=== PATIENT | female | born 1995 | race Caucasian/White ===

== ENCOUNTER → 2018-08-27 12:17 | Outpatient (CLI) | payer OTHER, SELFPAY ==
[2018-08-27 12:49] LABS: Absolute Lymphocyte Count 2.12 X10^3/ul (0.83-4.51); Absolute Neutrophil Count 4.8 X10^3/uL (2.0-7.7); Basophil# 0.02 X10^3/uL; Basophil% 0.3 % (0-1); Eosinophil# 0.03 X10^3/uL; Eosinophils% 0.4 % (0-5); Hematocrit 38.9 % (37-47); Hemoglobin 13.1 g/dl (12.0-15.0); Lymphocyte # 2.12 X10^3/ul (4.0); Lymphocyte % 27.6 % (19-41); Mean Corp Hgb Conc 33.7 g/gl (32-36); Mean Platelet Vol. 9.6 fl (6.2-12.0); Monocyte% 9.1 % (0-10); Neutrophil # 4.79 X10^3/uL (2.7-7.7); Neutrophil % 62.5 % (47-70); Platelet Count 179 K/mm3 (150-450); RBC Distribution Width CV 13.4 % (11.6-14.6); RBC Distribution Width SD 38.7 fl (35.1-43.9); Red Blood Count 4.86 M/mm3 (4.2-5.4); White Blood Count 7.7 K/mm3 (4.4-11.0)
[2018-08-27 12:50] LABS: Differential Indicated SCAN CRITERIA MET; POSITIVE COUNT NO; POSITIVE DIFFERENTIAL NO; POSITIVE MORPHOLOGY YES
[2018-08-27 14:05] LABS: HIV - WCH Non-Reactive (Nonreactive); Rubella IgG 90.2 IU/mL
[2018-08-27 14:25] LABS: Chlamydia Trachomatis by PCR Negative (Negative); Neisserai gonorrhoeae by PCR Negative (Negative); Probe Check PASS; Sample Adequacy Control PASS; Specimen Processing Control PASS
[2018-08-28 07:46] LABS: HEPATITIS B SURFACE AG Negative (Negative)
[2018-08-28 07:47] LABS: CMV Acute Antibody IgM < 30.0 AU/mL (0.0-29.9); CMV Antibody IgG < 0.60 U/mL (0.00-0.59)
[2018-09-03 02:59] LABS: Rapid Plasmin Reagin (RPR) NONREACTIVE (NONREACTIVE)
== END ==
PROVIDERS: Family Provider Family Medicine; PCP Family Medicine; Referring Provider Obstetrics & Gynecology; Visit Provider Obstetrics & Gynecology
DX: Z34.82 Encounter for supervision of other normal pregnancy, second trimester (principal)
CPT/HCPCS: 36415; 85025; 86592; 86644; 86645; 86703; 86762; 86850; 86900; 87077; 87086; 87088; 87106; 87340; 87491; 87591

== ENCOUNTER → 2018-12-07 16:02 | Outpatient (CLI) | payer OTHER, SELFPAY ==
[2018-11-26 13:24] VITALS: BMI 17.4
--- NOTE | 2018-12-07 16:21 | VDLE_ITS ---
Reason For Study: calf pain Procedure LEFT Exam performed in department. GSV is normal. The exam was diagnostic. CFV is compressible, spontaneous, phasic, A preliminary report was called and/or faxed competent, and demonstrates normal to Dr. Moore. augmentation. FV is compressible, spontaneous, phasic, competent and demonstrates normal augmentation. POP V is compressible, spontaneous, phasic, competent and demonstrates normal augmentation. T/P Trunk is compressible. PTV is compressible. LT PerV is compressible. Interpretation Summary Deep veins of the left lower extremity are patent and compressible segmentally. There is no evidence of left lower extremity deep vein thrombosis. Valvular competence appears intact within the proximal deep venous system on the left . The left greater saphenous vein appears patent and compressible segmentally. Ordering Physician: Linda Moore Performed By: Foster Suarez RVT
== END ==
PROVIDERS: Family Provider Family Medicine; PCP Family Medicine; Referring Provider Obstetrics & Gynecology; Visit Provider Obstetrics & Gynecology
DX: M79.669 Pain in unspecified lower leg (principal)
CPT/HCPCS: 93971

== ENCOUNTER → 2018-12-24 09:40 | Outpatient (CLI) | payer OTHER, SELFPAY ==
[2018-12-24 09:34] VITALS: BMI 17.4
[2018-12-24 10:34] LABS: Absolute Lymphocyte Count 1.46 X10^3/ul (0.83-4.51); Absolute Neutrophil Count 6.5 X10^3/uL (2.0-7.7); Basophil# 0.02 X10^3/uL; Basophil% 0.2 % (0-1); Eosinophil# 0.07 X10^3/uL; Eosinophils% 0.8 % (0-5); Hematocrit 26.9 % (37-47); Hemoglobin 8.4 g/dl (12.0-15.0); Lymphocyte # 1.46 X10^3/ul (4.0); Lymphocyte % 16.4 % (19-41); Mean Corp Hgb Conc 31.2 g/gl (32-36); Mean Corpuscular Volume 76.9 fL (81-99); Mean Platelet Vol. 10.1 fl (6.2-12.0); Monocyte# 0.82 X10^3/uL; Monocyte% 9.2 % (0-10); Neutrophil # 6.47 X10^3/uL (2.7-7.7); Neutrophil % 72.5 % (47-70); Platelet Count 173 K/mm3 (150-450); RBC Distribution Width CV 14.2 % (11.6-14.6); RBC Distribution Width SD 40.6 fl (35.1-43.9); White Blood Count 8.9 K/mm3 (4.4-11.0)
[2018-12-24 10:38] LABS: POSITIVE COUNT NO; POSITIVE DIFFERENTIAL NO; POSITIVE MORPHOLOGY NO
[2018-12-24 10:54] LABS: Glucose Challenge Gest 1H 50g 91 mg/dL (70-140)
== END ==
PROVIDERS: Family Provider Family Medicine; PCP Family Medicine; Referring Provider Obstetrics & Gynecology; Visit Provider Obstetrics & Gynecology
DX: Z34.90 Encounter for supervision of normal pregnancy, unspecified, unspecified trimester (principal)
CPT/HCPCS: 36415; 82950; 85025

== ENCOUNTER → 2019-01-28 10:23 | Outpatient (CLI) | payer OTHER, SELFPAY ==
[2019-01-28 09:36] VITALS: BMI 17.4
[2019-01-28 11:01] LABS: Absolute Lymphocyte Count 1.88 X10^3/ul (0.83-4.51); Basophil# 0.02 X10^3/uL; Basophil% 0.2 % (0-1); Eosinophil# 0.06 X10^3/uL; Eosinophils% 0.7 % (0-5); Hemoglobin 9.1 g/dl (12.0-15.0); Lymphocyte # 1.88 X10^3/ul (4.0); Lymphocyte % 20.7 % (19-41); Mean Corp Hgb Conc 30.3 g/gl (32-36); Mean Corpuscular Hgb 23.3 pg (27.0-32.0); Mean Corpuscular Volume 76.7 fL (81-99); Mean Platelet Vol. 9.9 fl (6.2-12.0); Monocyte# 1.09 X10^3/uL; Neutrophil # 5.95 X10^3/uL (2.7-7.7); Neutrophil % 65.4 % (47-70); Platelet Count 149 K/mm3 (150-450); Red Blood Count 3.91 M/mm3 (4.2-5.4); White Blood Count 9.1 K/mm3 (4.4-11.0)
[2019-01-28 11:04] LABS: POSITIVE COUNT NO; POSITIVE DIFFERENTIAL NO; POSITIVE MORPHOLOGY NO
== END ==
PROVIDERS: Family Provider Family Medicine; PCP Family Medicine; Referring Provider Obstetrics & Gynecology; Visit Provider Obstetrics & Gynecology
DX: O99.013 Anemia complicating pregnancy, third trimester (principal); Z3A.00 Weeks of gestation of pregnancy not specified
CPT/HCPCS: 36415; 85025

== ENCOUNTER → 2019-02-17 12:13 | Outpatient (CLI) | payer OTHER, SELFPAY ==
[2019-02-11 13:28] VITALS: BMI 17.4
--- NOTE | 2019-02-17 12:15 | US_ITS ---
STUDY: SECOND AND THIRD TRIMESTER OBSTETRICAL ULTRASOUND - LIMITED REASON FOR EXAM: Female, 23 years old. Small for dates LMP: Unknown. PRIOR ULTRASOUND: 12/16/2018 TECHNIQUE: Transabdominal TECHNICAL QUALITY: Adequate. FINDINGS: There is a single intrauterine fetus. The fetus is in a cephalic presentation. There is demonstrated cardiac activity with a heart rate of 161 bpm. There is a normal amniotic fluid volume. The largest amniotic fluid pocket measures 4.8 cm. The amniotic fluid index (JESUS) is 12.8 cm. The placenta is anterior in location and is not low lying. There are Grade 1 placental changes. The cervix was not measured. BIOMETRY: BPD: 9.24 cm: 37 weeks, 4 days HC: 33.59 cm: 38 weeks, 4 days AC: 32.58 cm: 36 weeks, 4 days FL: 6.93 cm: 35 weeks, 4 days age by current US: 37 weeks, 4 days. WANDA by current US: 03/09/2019. Estimated weight: 2978 grams, +/- 435 grams, 90 percentile. Gender: Indeterminant US/OB Limited With Biometrics IMPRESSION: Single live intrauterine at 37 weeks, 1 day by current ultrasound with WANDA of 03/09/2019. Heart rate at 161 bpm. No suspicious sonographic findings. WANDA on today's examination measures 1 week earlier than on the previous study Electronically Signed: Jacek Lopez MD at 18:36 EDT , Service support ,
== END ==
PROVIDERS: Family Provider Family Medicine; PCP Family Medicine; Referring Provider Nurse Practitioner Women's Health; Visit Provider Nurse Practitioner Women's Health
DX: O36.5990 Maternal care for other known or suspected poor fetal growth, unspecified trimester, not applicable or unspecified (principal); Z3A.00 Weeks of gestation of pregnancy not specified
CPT/HCPCS: 76816

== ENCOUNTER → 2019-02-21 11:05 | Outpatient (CLI) | payer OTHER, SELFPAY ==
[2019-02-21 10:42] VITALS: BMI 17.4
[2019-02-21 12:33] LABS: Absolute Lymphocyte Count 1.78 X10^3/ul (0.83-4.51); Absolute Neutrophil Count 7.8 X10^3/uL (2.0-7.7); Basophil# 0.02 X10^3/uL; Basophil% 0.2 % (0-1); Eosinophil# 0.03 X10^3/uL; Eosinophils% 0.3 % (0-5); Hematocrit 35.2 % (37-47); Hemoglobin 10.8 g/dl (12.0-15.0); Lymphocyte # 1.78 X10^3/ul (4.0); Lymphocyte % 16.2 % (19-41); Mean Corp Hgb Conc 30.7 g/gl (32-36); Mean Corpuscular Hgb 23.9 pg (27.0-32.0); Mean Corpuscular Volume 77.9 fL (81-99); Mean Platelet Vol. 10.2 fl (6.2-12.0); Monocyte# 1.19 X10^3/uL; Monocyte% 10.8 % (0-10); Neutrophil # 7.84 X10^3/uL (2.7-7.7); Neutrophil % 71.2 % (47-70); Platelet Count 209 K/mm3 (150-450); RBC Distribution Width CV 19.5 % (11.6-14.6); RBC Distribution Width SD 52.6 fl (35.1-43.9); Red Blood Count 4.52 M/mm3 (4.2-5.4)
[2019-02-21 12:38] LABS: POSITIVE COUNT NO; POSITIVE DIFFERENTIAL NO; POSITIVE MORPHOLOGY NO
[2019-02-21 12:52] LABS: ALB/GLOB Ratio 0.6 RATIO (0.9-2.4); AST(SGOT) 24 U/L (15-37); Alanine Aminotransfer ALT/SGPT 16 U/L (13-56); Albumin, Serum 2.7 g/dL (3.2-5.0); Alkaline Phosphatase 215 U/L (45-117); Anion Gap 10 (5-15); BUN 4 mg/dL (7-18); Calcium,Total 8.8 mg/dL (8.5-10.1); Chloride 107 mmol/L (98-107); Creatinine, Serum 0.44 mg/dL (0.55-1.02); EST Glomerular Filtration Rate 182 mL/min (>60); Est Glom Filt Rate - Afr Amer 220 mL/min (>60); Globulin 4.9 g/dL (2.2-4.2); Glucose 58 mg/dL (74-106); Potassium 3.3 mmol/L (3.5-5.1); Protein, Total 7.6 g/dL (6.4-8.2); Sodium Level 139 mmol/L (136-145)
== END ==
PROVIDERS: Family Provider Family Medicine; PCP Family Medicine; Referring Provider Obstetrics & Gynecology; Visit Provider Obstetrics & Gynecology
DX: O99.019 Anemia complicating pregnancy, unspecified trimester (principal); O26.899 Other specified pregnancy related conditions, unspecified trimester; R50.9 Fever, unspecified; J45.909 Unspecified asthma, uncomplicated; Z3A.00 Weeks of gestation of pregnancy not specified
CPT/HCPCS: 80053; 85025; 87086

== ENCOUNTER → 2019-02-25 11:10 | Outpatient (CLI) | payer OTHER, SELFPAY ==
[2019-02-25 10:36] VITALS: BMI 17.4
--- NOTE | 2019-02-25 11:12 | US_ITS ---
STUDY: OBSTETRICAL ULTRASOUND - BIOPHYSICAL PROFILE REASON FOR EXAM: Female, 23 years old. well-being. LMP: 2018 PRIOR ULTRASOUND: Comparison is made with prior study of February 17, 2019. TECHNIQUE: Transabdominal TECHNICAL QUALITY: Adequate. FINDINGS: There is a single intrauterine fetus. The fetus is in a cephalic presentation. There is demonstrated cardiac activity with a heart rate of 136 bpm. There is a normal amniotic fluid volume. The largest amniotic fluid pocket measures 3.6 cm x 2.2 cm. The amniotic fluid index (JESUS) is 9.2 cm. The placenta is anterior in location and is not low lying. There are Grade 2 placental changes. Age by LMP: 36 weeks, 0 days. WANDA by LMP: March 25, 2019. age by prior US: 38 weeks, 2 days. WANDA by prior US: March 09, 2019. Gender: Male The umbilical cord is seen along the posterior cervical aspect of the fetus. BIOPHYSICAL PROFILE: Breathing Movements (FBM): 2 Gross Body Movements (GBM): 2 Tone (FT): 2 Amniotic Fluid Volume (AFV): 2 TOTAL SCORE: 8 / 8 US/Biophysical Profile IMPRESSION: Normal biophysical profile of 8/8. Electronically Signed: Donald Lozano, at 12:38 EDT , Service support ,
== END ==
PROVIDERS: Family Provider Family Medicine; PCP Family Medicine; Referring Provider Obstetrics & Gynecology; Visit Provider Obstetrics & Gynecology
DX: O26.619 Liver and biliary tract disorders in pregnancy, unspecified trimester (principal); K83.1 Obstruction of bile duct; Z3A.00 Weeks of gestation of pregnancy not specified
CPT/HCPCS: 76818; 87081

== ENCOUNTER 2019-03-01 16:20 | Outpatient (CLI) | payer OTHER, SELFPAY ==
[2019-02-25 10:36] VITALS: BMI 17.4
--- NOTE | 2019-03-01 15:10 | US_ITS ---
STUDY: OBSTETRICAL ULTRASOUND - BIOPHYSICAL PROFILE REASON FOR EXAM: Female, 23 years old. Cholestasis. well-being assessment. LMP: 06/18/2018 . GA (LMP) 36 week 4 day, with WANDA 03/25/2019. PRIOR ULTRASOUND: None. TECHNIQUE: Transabdominal ultrasound evaluation was performed. FINDINGS: Single live intrauterine gestation in cephalic presentation, cardiac rate 165 bpm. Amniotic fluid index 7.73 cm, deepest vertical pocket 3.1 cm. Placenta anterior, not low-lying. The maternal adnexa are not evaluated. biometrics/growth not assessed. Gender: Male BIOPHYSICAL PROFILE: Breathing Movements (FBM): 2 Gross Body Movements (GBM): 2 Tone (FT): 2 Amniotic Fluid Volume (AFV): 2 TOTAL SCORE: 8 / 8 US/Biophysical Profile IMPRESSION: Normal biophysical profile of 8/8. Electronically Signed: Sung Kwong MD at 12:52 EDT Tel , Service support ,
[2019-03-01 16:43] VITALS: BMI 19.4
[2019-03-01] MEDS: Betamethasone/Betamethasone 30 MG/5 ML Vial 12 MG IM (16:47)
== END 2019-03-01 17:00 | disposition home or self-care (01) ==
LOC: US 16:25 → WP 16:26
PROVIDERS: Family Provider Family Medicine; PCP Family Medicine; Referring Provider Obstetrics & Gynecology; Visit Provider Obstetrics & Gynecology
DX: O26.619 Liver and biliary tract disorders in pregnancy, unspecified trimester (principal); K83.1 Obstruction of bile duct; Z3A.00 Weeks of gestation of pregnancy not specified
CPT/HCPCS: 76818; 96372; 99218; G0378; J0702

== ENCOUNTER 2019-03-02 16:44 | Outpatient (CLI) | payer OTHER, SELFPAY ==
[2019-03-01 16:43] VITALS: BMI 19.4
[2019-03-02 17:07] VITALS: BMI 19.3
[2019-03-02] MEDS: Betamethasone/Betamethasone 30 MG/5 ML Vial 12 MG IM (17:19)
--- NOTE | 2019-03-04 07:41 | OB.TRI.PN ---
Progress Notes Date of Service: 03/02/19 Progress Note: celestone injection secondary to prematurity, planned 37 weeks delivery secondary to cholestasis
== END 2019-03-02 17:27 | disposition home or self-care (01) ==
LOC: WPOUT 16:45 → WP 16:45
PROVIDERS: Family Provider Family Medicine; PCP Family Medicine; Referring Provider Obstetrics & Gynecology; Visit Provider Obstetrics & Gynecology
DX: O26.619 Liver and biliary tract disorders in pregnancy, unspecified trimester (principal); K83.1 Obstruction of bile duct; Z3A.00 Weeks of gestation of pregnancy not specified
CPT/HCPCS: 96372; J0702

== ENCOUNTER 2019-03-04 07:10 | Inpatient (IN) | payer OTHER, SELFPAY ==
[2019-02-11 13:28] VITALS: BMI 17.4
[2019-03-04 07:13] VITALS: BMI 19.3
--- NOTE | 2019-03-04 07:35 | PCM.HP.OB ---
- Problem List (1) Cholestasis during Status: Acute Qualifiers: Comment: recommend twice weekly bpps and deliver at 37. (2) Anemia affecting Status: Acute Qualifiers: Comment: repeat CBC q 4 weeks. PNV +slow FE midday and evening with glass of Vit C (3) Status: Acute Qualifiers: Comment: NIPT negative, declined ntd screening. carrier screening negative in past. anatomy scan normal. (4) Supervision of normal Status: Acute Qualifiers: Comment: PRR WANDA 03/25/19 boy Daron Sandhu Simone (5) Asthma Status: Chronic Qualifiers: Comment: controlled History Date of Admission: 03/04/19 Final WANDA: 03/25/19 Gestational age: 37 Weeks and 0 Days History of this : This is a 23 year-old, , at 37 weeks gestational age presents for induction of labor secondary to cholestasis of . Patient had been monitored with twice weekly testing which were reassuring and she also received 2 doses of Celestone prior to induction of labor. Medical History: Medical History (Last Reviewed 02/25/19 @ 10:13 by Zandra Daniels) Asthma (Chronic) J45.909 controlled Allergies No Known Allergies Allergy (Verified 03/01/19 16:27) Home Medications: Home Medications docosahexanoic acid 200 mg capsule 1 tab PO DAILY cap 08/27/18 ranitidine 150 mg tablet 150 mg PO BID #60 tab 12/24/18 betamethasone acetate and sodium phos 6 mg/mL suspension for injection 12 mg INFILT ONCE #2 ml 02/25/19 hydroxyzine HCl 50 mg tablet 50 mg PO TID-QID #40 tab 02/25/19 ursodiol 300 mg capsule 300 mg PO BID #30 cap 02/25/19 Smoking Status: Never smoker Alcohol: None Number of Fetus(es): 1 Heart Tracin moderate variability reactive no decelerations category I tracing [place]: no regular History Past Pregnancies: Past Pregnancies previous uncomplicated Labs: Social History Smoking Status Never smoker Expected Infant Delivery Method: Spontaneous Vaginal Review of Systems Constitutional: Denies: Fever, Malaise Eyes: Denies: Blurred vision, Vision Change HEENT: Denies: Head Aches, Visual Changes Cardiovascular: Denies: Chest Pain, Palpitations Respiratory: Denies: Cough, Shortness of Breath, Wheezing Gastrointestinal: Denies: Abdominal Pain, Diarrhea, Nausea, Vomiting Genitourinary: Denies: Dysuria, Hematuria Musculoskeletal: Denies: Joint Pain, Muscle pain Skin: Denies: Lesions, Rash Neurological: Denies: Blurred vision, Focal weakness, Headaches Psychiatric: Denies: Anxiety, Depression Endocrine: Denies: Heat/ Cold Intolerance Hematologic/ Lymphatic: Denies: Easy Bruising, Easy Bleeding Physical Exam General: Alert, Cooperative, No apparent distress HEENT: Atraumatic, Normocephalic. Negative for: Thyromegaly, Lymphadenopathy Cardiovascular: Regular rate Lungs: Normal air movement Abdomen: Soft, Non Tender, Gravid Neurological: Deep Tendon Reflexes 2+/4 and Symmetrical, Neuro grossly intact. Negative for: Clonus CARE DIRECTOR: Normal external genitalia. Negative for: Vulvar lesions Estimated gestational size: Appropriate for gestational size Presentation: Cephalic Assessment/Plan All Active Problems (Last Reviewed 02/25/19 @ 10:13 by Zandra Daniels) Cholestasis during (Acute) Anemia affecting (Acute) (Acute) Supervision of normal (Acute) This is a 23 year-old, , at 37 weeks gestational age presents for IOL cholestasis Patient presents IOL, plan management for , pitocin/AROM when able. Pain management: plans epidural. GBS negative. Management of any complications: cholestasis I [facility] the [facility] and made any clinically relevant updates.
--- NOTE | 2019-03-04 07:39 | HP.PCM_ITS ---
- Problem List (1) Cholestasis during Status: Acute Qualifiers: Comment: recommend twice weekly bpps and deliver at 37. (2) Anemia affecting Status: Acute Qualifiers: Comment: repeat CBC q 4 weeks. PNV +slow FE midday and evening with glass of Vit C (3) Status: Acute Qualifiers: Comment: NIPT negative, declined ntd screening. carrier screening negative in past. anatomy scan normal. (4) Supervision of normal Status: Acute Qualifiers: Comment: PRR WANDA 03/25/19 boy Daron Sandhu Simone (5) Asthma Status: Chronic Qualifiers: Comment: controlled History Date of Admission: 03/04/19 Final WANDA: 03/25/19 Gestational age: 37 Weeks and 0 Days History of this : This is a 23 year-old, , at 37 weeks gestational age presents for induction of labor secondary to cholestasis of . Patient had been monitored with twice weekly testing which were reassuring and she also received 2 doses of Celestone prior to induction of labor. Medical History: Medical History (Last Reviewed 02/25/19 @ 10:13 by Zandra Daniels) Asthma (Chronic) J45.909 controlled Allergies No Known Allergies Allergy (Verified 03/01/19 16:27) Home Medications: Home Medications docosahexanoic acid 200 mg capsule 1 tab PO DAILY cap 08/27/18 ranitidine 150 mg tablet 150 mg PO BID #60 tab 12/24/18 betamethasone acetate and sodium phos 6 mg/mL suspension for injection 12 mg INFILT ONCE #2 ml 02/25/19 hydroxyzine HCl 50 mg tablet 50 mg PO TID-QID #40 tab 02/25/19 ursodiol 300 mg capsule 300 mg PO BID #30 cap 02/25/19 Smoking Status: Never smoker Alcohol: None Number of Fetus(es): 1 Heart Tracin moderate variability reactive no decelerations category I tracing [place]: no regular History Past Pregnancies: Past Pregnancies previous uncomplicated Labs: Social History Smoking Status Never smoker Expected Infant Delivery Method: Spontaneous Vaginal Review of Systems Constitutional: Denies: Fever, Malaise Eyes: Denies: Blurred vision, Vision Change HEENT: Denies: Head Aches, Visual Changes Cardiovascular: Denies: Chest Pain, Palpitations Respiratory: Denies: Cough, Shortness of Breath, Wheezing Gastrointestinal: Denies: Abdominal Pain, Diarrhea, Nausea, Vomiting Genitourinary: Denies: Dysuria, Hematuria Musculoskeletal: Denies: Joint Pain, Muscle pain Skin: Denies: Lesions, Rash Neurological: Denies: Blurred vision, Focal weakness, Headaches Psychiatric: Denies: Anxiety, Depression Endocrine: Denies: Heat/ Cold Intolerance Hematologic/ Lymphatic: Denies: Easy Bruising, Easy Bleeding Physical Exam General: Alert, Cooperative, No apparent distress HEENT: Atraumatic, Normocephalic. Negative for: Thyromegaly, Lymphadenopathy Cardiovascular: Regular rate Lungs: Normal air movement Abdomen: Soft, Non Tender, Gravid Neurological: Deep Tendon Reflexes 2+/4 and Symmetrical, Neuro grossly intact. Negative for: Clonus [employer]FER: Normal external genitalia. Negative for: Vulvar lesions Estimated gestational size: Appropriate for gestational size Presentation: Cephalic Assessment/Plan All Active Problems (Last Reviewed 02/25/19 @ 10:13 by Zandra Daniels) Cholestasis during (Acute) Anemia affecting (Acute) (Acute) Supervision of normal (Acute) This is a 23 year-old, , at 37 weeks gestational age presents for IOL cholestasis Patient presents IOL, plan management for , pitocin/AROM when able. Pain management: plans epidural. GBS negative. Management of any complications: cholestasis I have reviewed the [facility] and made any clinically relevant updates.
[2019-03-04] MEDS: 0.9% Normal Saline 100 ML IV.SOLN. INTRA-UTER (07:50)
[2019-03-04] MEDS: Oxytocin 30 units/NS 500 ml 30 UNITS/500 ML IV.SOLN IV (08:25)
[2019-03-04] MEDS: Lactated Ringers 1,000 ML 50 ML IV ×3 (08:25→17:53)
[2019-03-04 09:16] LABS: Absolute Lymphocyte Count 1.87 X10^3/ul (0.83-4.51); Absolute Neutrophil Count 6.2 X10^3/uL (2.0-7.7); Basophil# 0.01 X10^3/uL; Basophil% 0.1 % (0-1); Eosinophil# 0.03 X10^3/uL; Eosinophils% 0.3 % (0-5); Hematocrit 30.7 % (37-47); Hemoglobin 9.4 g/dl (12.0-15.0); Lymphocyte # 1.87 X10^3/ul (4.0); Mean Corp Hgb Conc 30.6 g/gl (32-36); Mean Corpuscular Hgb 23.6 pg (27.0-32.0); Mean Corpuscular Volume 76.9 fL (81-99); Mean Platelet Vol. 9.6 fl (6.2-12.0); Monocyte# 2.09 X10^3/uL; Monocyte% 20.2 % (0-10); Neutrophil # 6.18 X10^3/uL (2.7-7.7); Neutrophil % 59.6 % (47-70); Platelet Count 210 K/mm3 (150-450); RBC Distribution Width CV 20.1 % (11.6-14.6); RBC Distribution Width SD 56.2 fl (35.1-43.9); Red Blood Count 3.99 M/mm3 (4.2-5.4); White Blood Count 10.4 K/mm3 (4.4-11.0)
[2019-03-04 09:18] LABS: Differential Indicated SCAN CRITERIA MET; POSITIVE COUNT NO; POSITIVE DIFFERENTIAL YES; POSITIVE MORPHOLOGY YES
[2019-03-04] MEDS: Nalbuphine 10 MG/ML Ampul IV (16:21)
[2019-03-04] MEDS: fentaNYL-bupivacaine (epidural) 100 ML BAG EPIDURAL ×2 (17:54→22:49)
[2019-03-04] MEDS: Oxytocin 30 units/NS 500 ml 30 UNITS/500 ML IV.SOLN 334 UNITS IV (23:49)
--- NOTE | 2019-03-04 23:59 | PCM.OPRPT ---
Problem List (1) Cholestasis during Status: Acute Qualifiers: Comment: recommend twice weekly bpps and deliver at 37. (2) Anemia affecting Status: Acute Qualifiers: Comment: repeat CBC q 4 weeks. PNV +slow FE midday and evening with glass of Vit C (3) Status: Acute Qualifiers: Comment: NIPT negative, declined ntd screening. carrier screening negative in past. anatomy scan normal. (4) Supervision of normal Status: Acute Qualifiers: Comment: PRR WANDA 03/25/19 boy Daron Sandhu Simone (5) Asthma Status: Chronic Qualifiers: Comment: controlled Report of Operation Date of Procedure: 03/04/19 Pre-Operative Diagnosis: iol cholestasis Post-Operative Diagnosis: same Type of Anesthesia:: Epidural Vaginal Delivery Maternal Presentation: Active Labor iol cholestasis 37 weeks Method of Induction: Pitocin, [facility] Reason for Induction: - - cholestasis Amniotic Membrane Rupture Type: Artificial Amniotic Fluid Description: Clear Final WANDA: 03/25/19 Gestational age: 37 Weeks and 0 Days Date of Procedure: 03/04/19 Pre-Operative Diagnosis: iol cholestasis Post-Operative Diagnosis: same Surgery/ Procedure Performed: Spontaneous Vaginal Delivery Type of Anesthesia: Epidural Description of Procedure: Patient began pushing and delivered the head in the MATILDE presentation. The head was delivered atraumatically and a loose nuchal cord ?1 was identified and easily reduced over the 's head. The anterior and posterior shoulders delivered without complication followed by the rest of the and the was placed on the maternal abdomen. Delayed cord clamping was employed for approximately 60 seconds. Cord was clamped and cut and gentle traction was applied to the cord and the placenta delivered spontaneously immediately following it was noted to be intact with three-vessel cord. The perineum and vagina were inspected and noted to have a small right paravaginal laceration that was repaired with 1 stitch of 3-0 Vicryl repeat. EBL was 200 cc. Patient and tolerated delivery well. Presentation: MATILDE Placental Delivery Description: Spontaneous Placenta Disposition: [facility] Cord Entanglement: Around neck x 1, loose Estimated Blood Loss: 200 A gender: Male Episiotomy Description: None Laceration: Vaginal Extension/lac, 1st degree Medications given after delivery: IV Pitocin Complications: None
[2019-03-05] MEDS: Oxytocin 30 units/NS 500 ml 30 UNITS/500 ML IV.SOLN 167 UNITS IV (00:19)
[2019-03-05 02:03] VITALS: BP 112/65; PULSE 65; RESP 20; TEMP 38.2
[2019-03-05 03:35] VITALS: BP 105/66; PULSE 16; RESP 67; TEMP 37.1
[2019-03-05 10:00] VITALS: BP 96/62; PULSE 82; RESP 16; TEMP 36.7
[2019-03-05 14:00] VITALS: BP 100/63; PULSE 71; RESP 16; TEMP 36.3
[2019-03-05 18:00] VITALS: BP 101/56; PULSE 68; RESP 16; TEMP 36.1
[2019-03-05 20:15] VITALS: BP 103/67; PULSE 74; RESP 16; TEMP 36.4
[2019-03-06 02:35] VITALS: BP 108/64; PULSE 74; RESP 16; TEMP 36.6
--- NOTE | 2019-03-06 08:04 | PCM.PN.OB ---
Subjective: doing well no complaints pain controlled no CP SOB N V ambulating well tolerating po lochia moderate, going well - Physical Exam General: Alert, Oriented x3 Vital Signs Temp Pulse Resp BP 97.9 F 74 16 108/64 03/06/19 02:35 03/06/19 02:35 03/06/19 02:35 03/06/19 02:35 Oxygen Delivery Method Room Air Weight: 131 lb 2.801 oz Body Mass Index (BMI) 19.3 Medical Necessity - Tobacco Use Smoking Status: Never smoker Assessment/Plan All Active Problems (Last Reviewed 02/25/19 @ 10:13 by Zandra Daniels) Cholestasis during (Acute) Anemia affecting (Acute) (Acute) Supervision of normal (Acute) s/p PPD # 1 1. routine post delivery care 2. breast feeding- support given 3. rh positive 4. rubella immune
--- NOTE | 2019-03-06 08:05 | DCINST_ITS ---
Discharge Diet: No Restrictions Discharge Activity: Return to Normal Activity, May not drive while taking narcotic pain medications., May Shower May resume sexual activity in: 4-6 weeks Call your doctor if your incision/area has: Continuous Slow Oozing, Sudden Increased Bleeding, Increased Pain/ Swelling, Increased Redness, Foul Smelling Discharge Additional Instructions: If you experience any of the following, contact your healthcare provider. * Bleeding that soaks a pad every hour for 2 hours * Fever 100.4 or higher * Unrelieved incision or abdominal pain * Swelling, redness, discharge or bleeding from your incision or episiotomy site * Your incision begins to separate * Problems urinating (including inability to urinate or burning while urinating). * Visual changes * Severe headache * Flu-like symptoms * Pain or redness in one of both of your breasts * Pain, warmth, tenderness or swelling in your legs, especially the calf area * Frequent nausea and vomiting * Symptoms of depression or anxiety If you experience any of the following, call 911 or go to the nearest Emergency Room. * Chest pain * Problems breathing * Seizure activity * Partial or complete paralysis of a body part, slurred speech, weakness or drooping of the face, or a sudden inability to walk or hold your balance Allergies/Adverse Reactions: Allergies No Known Allergies Allergy (Verified 03/01/19 16:27) Medications to take at Discharge docosahexanoic acid 200 mg capsule 1 tab PO DAILY cap 08/27/18 Betamethasone Acetate,Sod Phos [Celestone Soluspan 30 mg/5 ml] 12 mg INFILT ONCE 03/04/19 Hydroxyzine HCl 50 mg PO TID-QID 03/04/19 Ranitidine HCl 150 mg PO BID 03/04/19 Ursodiol 300 mg PO BID 03/04/19 Please Follow Up With: Linda Moore MD - [phone] When: Call to make an appointment with your doctor in 6 weeks. If you had elevated Blood pressure or 4th degree laceration you will need to be seen in 2 weeks. Primary Care Physician: Meng Hager MD [Primary Care Provider] - Test Results: Test results from this visit will be discussed in further detail at your follow- up appointment, if applicable.
[2019-03-06 08:58] VITALS: BP 105/69; PULSE 62; RESP 18; TEMP 36.5
== END 2019-03-06 10:00 | disposition home or self-care (01) | DRG 805 ==
PROVIDERS: Admitting Provider Obstetrics & Gynecology; Family Provider Family Medicine; PCP Family Medicine; Referring Provider Obstetrics & Gynecology; Visit Provider Obstetrics & Gynecology
DX: O26.62 Liver and biliary tract disorders in childbirth (principal); K83.1 Obstruction of bile duct; Z37.0 Single live birth; O71.4 Obstetric high vaginal laceration alone; O99.02 Anemia complicating childbirth; D64.9 Anemia, unspecified; O69.81X0 Labor and delivery complicated by cord around neck, without compression, not applicable or unspecified; Z3A.37 37 weeks gestation of pregnancy
CPT/HCPCS: 59025; 59050; 85025; 86850; 86900; 99218; J7120; G0378

== ENCOUNTER → 2022-09-08 | Outpatient (CLI) | payer OTHER, SELFPAY ==
[2022-09-08 14:46] LABS: Absolute Neutrophil Count 4.9 X10^3/uL (2.0-7.7); Basophil# 0.04 X10^3/uL; Basophil% 0.5 % (0-1); Eosinophil# 0.06 X10^3/uL; Eosinophils% 0.8 % (0-5); Hematocrit 33.4 % (37-47); Hemoglobin 10.2 g/dL (12.0-15.0); Lymphocyte % 23.1 % (19-41); Mean Corp Hgb Conc 30.5 g/dL (32-36); Mean Corpuscular Hgb 22.1 pg (27.0-32.0); Mean Corpuscular Volume 72.5 fL (81-99); Mean Platelet Vol. 9.5 fl (6.2-12.0); Monocyte# 0.66 X10^3/uL; NRBC Flagged by Analyzer 0 % (0-5); Neutrophil # 4.86 X10^3/uL (2.7-7.7); Neutrophil % 66.2 % (47-70); Platelet Count 212 K/mm3 (150-450); RBC Distribution Width SD 38.9 fl (35.1-43.9); Red Blood Count 4.61 M/mm3 (4.2-5.4); White Blood Count 7.4 K/mm3 (4.4-11.0)
[2022-09-08 15:35] LABS: NATERA MAILED SPECIMEN
[2022-09-08 18:50] LABS: Amphetamine Urine VISTA NEGATIVE (<1000 ng/mL); Barbiturate Urine VISTA NEGATIVE (< 200 ng/mL); Benzodiazepine Urine VISTA NEGATIVE (< 200 ng/mL); Cocaine Urine VISTA NEGATIVE (< 300 ng/mL); Ecstacy Urine VISTA NEGATIVE (< 500 ng/mL); Methadone Urine VISTA NEGATIVE (< 300 ng/mL); PCP Urine VISTA NEGATIVE (< 25 ng/mL); THC Urine VISTA NEGATIVE (< 50 ng/mL); Vista UDS pH Range 6
[2022-09-08 20:39] LABS: Ferritin 4 ng/mL (8-252); Iron 17 ug/dL (50-170); Iron Binding Capacity,Total 499 ug/dL (250-450)
[2022-09-08 21:04] LABS: HIV - WCH Non-Reactive (Nonreactive); Hepatitis B Surface Antigen Non-Reactive (Nonreactive); Hepatitis C Antibody Non-Reactive (Nonreactive); Rubella IgG Reactive (Nonreactive); Syphilis Antibodies Non-reactive
== END | disposition home or self-care (01) ==
PROVIDERS: PCP Family Medicine; Referring Provider Obstetrics & Gynecology; Visit Provider Obstetrics & Gynecology
DX: Z34.81 Encounter for supervision of other normal pregnancy, first trimester (principal)
CPT/HCPCS: 36415; 80307; 82728; 83540; 83550; 85025; 86703; 86762; 86780; 86803; 86850; 86900; 86901; 87086; 87088; 87340

== ENCOUNTER → 2022-12-05 | Outpatient (CLI) | payer OTHER, SELFPAY | END | disposition home or self-care (01) | PROVIDERS: PCP Family Medicine; Visit Provider Obstetrics & Gynecology | DX: O99.712 Diseases of the skin and subcutaneous tissue complicating pregnancy, second trimester (principal); L29.9 Pruritus, unspecified | CPT/HCPCS: 36415 ==

== ENCOUNTER → 2023-01-02 | Outpatient (CLI) | payer OTHER, SELFPAY ==
[2023-01-02 16:11] LABS: Absolute Lymphocyte Count 1.21 X10^3/uL (0.83-4.51); Absolute Neutrophil Count 6.2 X10^3/uL (2.0-7.7); Basophil# 0.02 X10^3/uL; Basophil% 0.2 % (0-1); Eosinophil# 0.06 X10^3/uL; Eosinophils% 0.7 % (0-5); Hematocrit 28.5 % (37-47); Hemoglobin 8.6 g/dL (12.0-15.0); Lymphocyte # 1.21 X10^3/ul (0.83-4.51); Lymphocyte % 14.9 % (19-41); Mean Corp Hgb Conc 30.2 g/dL (32-36); Mean Corpuscular Hgb 21.7 pg (27.0-32.0); Mean Corpuscular Volume 71.8 fL (81-99); Mean Platelet Vol. 10.8 fl (6.2-12.0); Monocyte# 0.59 X10^3/uL; Monocyte% 7.2 % (0-10); NRBC Flagged by Analyzer 0 % (0-5); Neutrophil # 6.16 X10^3/uL (2.7-7.7); Neutrophil % 75.8 % (47-70); Platelet Count 183 K/mm3 (150-450); RBC Distribution Width CV 17.2 % (11.6-14.6); RBC Distribution Width SD 44.4 fl (35.1-43.9); Red Blood Count 3.97 M/mm3 (4.2-5.4); White Blood Count 8.1 K/mm3 (4.4-11.0)
[2023-01-02 16:38] LABS: ALB/GLOB Ratio 0.8 RATIO (0.9-2.4); AST(SGOT) 14 U/L (15-37); Alanine Aminotransfer ALT/SGPT 11 U/L (13-56); Albumin, Serum 2.8 g/dL (3.2-5.0); Alkaline Phosphatase 52 U/L (45-117); Anion Gap 7 (5-15); BUN 7 mg/dL (7-18); BUN/Creat Ratio 17.6 RATIO (10-20); Calcium,Total 8.4 mg/dL (8.5-10.1); Chloride 106 mmol/L (98-107); EST Glomerular Filtration Rate 202 mL/min (>60); Est Glom Filt Rate - Afr Amer 244 mL/min (>60); Globulin 3.7 g/dL (2.2-4.2); Glucose 147 mg/dL (74-106); Glucose Challenge Gest 1H 50g 147 mg/dL (70-140); Potassium 3.1 mmol/L (3.5-5.1); Protein, Total 6.5 g/dL (6.4-8.2); Sodium Level 140 mmol/L (136-145)
== END | disposition home or self-care (01) ==
LOC: LAB 15:13
PROVIDERS: PCP Family Medicine; Visit Provider Obstetrics & Gynecology
DX: O99.712 Diseases of the skin and subcutaneous tissue complicating pregnancy, second trimester (principal); L29.9 Pruritus, unspecified
CPT/HCPCS: 36415; 80053; 82950; 85025

== ENCOUNTER 2023-01-07 10:57 | Emergency (ER) | payer OTHER, SELFPAY ==
[2023-01-07 10:59] VITALS: BP 106/78; PULSE 82; RESP 17; TEMP 36.8; O2SAT 100
--- NOTE | 2023-01-07 11:46 | ED.VIS.GI ---
HPI HPI - GI History of Present Illness Chief Complaint: Abd Pain Informant: patient Abdominal Pain/Flank Pain Onset: Days (3) Context: Gradual Onset Timing: Waxes and wanes Quality: Sharp and - (Pinching) Location: RUQ and Right Flank Worsened by: Nothing Relieved by: Nothing Nausea/Vomiting/Emesis GI Symptom: Positive for Nausea; Negative for Vomiting Diarrhea/Melena/Hematochezia GI Symptom: Negative for Diarrhea, Melena or Hematochezia Associated Symptoms Associated Symptoms: Negative for Dysuria, Frequency or Hematuria Narrative Narrative: Patient presents with right upper quadrant abdominal pain and right flank pain that began yesterday. Patient states the pain radiates to her right scapular area. Patient states it waxes and wanes. Patient describes the pain as sharp and pinching. Patient states nothing makes it better nothing makes it worse. Patient admits to nausea but denies any vomiting. Patient denies any diarrhea, melena, or hematochezia. Patient denies any dysuria, frequency, or hematuria. Patient does admit to some intermittent lightheadedness. Patient admits to some mild shortness of breath. Patient denies any chest pain. Patient denies any cough. [facility] Medical History Anxiety Asthma H/O gestational diabetes in prior , currently History of cholestasis during Supervision of high risk , antepartum Home Medications multivitamin no.47-iron fum 27 mg-folate no.1 1 mg-dha 300 mg capsule (PNV-DHA) 1 cap PO DAILY 08/30/22 [History Last Taken Unknown] venlafaxine 37.5 mg capsule,extended release 24 hr 37.5 mg PO DAILY #30 caps 10/20/22 [Rx Last Taken Unknown] famotidine 20 mg tablet (Pepcid) 20 mg PO Q12H #60 tabs 12/05/22 [Rx Last Taken Unknown] hydroxyzine pamoate 50 mg capsule (Vistaril) 50 mg PO QHS #30 caps 12/05/22 [Rx Last Taken Unknown] ferrous sulfate 325 mg (65 mg iron) tablet (iron) 325 mg PO BID 01/07/23 [History Last Taken Unknown] Allergy/AdvReac Type Severity Reaction Status Date / Time No Known Allergies Allergy Verified 01/07/23 10:57 Family History Grandfather Diabetes Sister Myocardial infarction Factor 5 Leiden mutation, heterozygous Social History household members: family housing: house number of children: 2 current occupational status: employed current occupation: [employer]. School- agricultural education teacher pets and animals: Yes (patient is not cleaning the litter box) pets and animals: cat(s) and dog(s) Smoking Status: Never smoker second hand exposure: No alcohol intake: current details: Not while substance use type: does not use caffeine: Yes what type of physical activity do you participate in: none seatbelt use: always do you feel safe at home: Yes additional social history: - [employer] ROS ROS ED Constitutional Constitutional ED: Denies chills or fever(s) Eyes Eyes: Denies blurry vision or change in vision ENT ENT ED: Reports rhinorrhea; Denies sore throat Cardiovascular Cardiovascular: Denies chest pain or palpitations Respiratory/Chest Respiratory/Chest: Reports dyspnea; Denies cough Gastrointestinal Gastrointestinal: Reports abdominal pain and nausea; Denies vomiting Genitourinary Genitourinary ED: Denies dysuria or hematuria Musculoskeletal Musculoskeletal: Reports back pain; Denies neck pain Integumentary Denies abscess or rash Neurologic Neurologic: Denies headache(s) or weakness Allergic/Immunologic Allergic/Immunologic ED: Denies mouth swelling or urticaria EXAM Physical Exam Const Vital Signs: 01/07/23 10:59 Temperature 98.2 F Temperature Source Temporal Pulse Rate 82 Respiratory Rate 17 Blood Pressure 106/78 Blood Pressure Mean 87 Pulse Ox 100 Oxygen Delivery Method Room Air Positive well nourished and well developed General Appearance ED: well developed and NAD HEENT Reports moist mucous membranes Neck supple and no JVD Resp normal respiratory effort and clear to auscultation bilaterally Cardio regular rate, regular rhythm and no murmurs GI normal to inspection, nondistended, normoactive bowel sounds GI Narrative: There is a gravid uterus noted. Palpation: soft and tender RUQ (Mild) Back/Spine General Back: CVA tenderness right Extremity normal to inspection General Extremety ED: Negative for edema or tenderness General Extremity: Negative for edema Neuro oriented x3, CN's II-XII intact bilaterally and no sensory deficits noted Sensorium / Orientation: alert Motor Exam: strength 5/5 throughout Psych mental status grossly normal Skin no rashes or lesions noted MDM MDM MDM Narrative Medical decision making narrative: Differential diagnosis includes cholecystitis, cholelithiasis, pyelonephritis, urinary tract infection, hepatitis, pulmonary embolism, gastroenteritis, colitis, enteritis, pancreatitis. CBC will be obtained to assess for leukocytosis and anemia. Comprehensive metabolic profile will be obtained to assess for hepatic function, renal function, and electrolyte abnormality. Lipase will be obtained to assess for pancreatitis. Right upper quadrant ultrasound will be obtained to assess for cholelithiasis and cholecystitis. Patient is PERC negative so I do not feel this is due to a pulmonary embolism. Urinalysis will be obtained to assess for urinary tract infection and hematuria. Lab Data Lab results narrative: CBC was reviewed and showed a mild anemia with a hemoglobin of 9.4 and hematocrit of 32.0. Platelets are normal. Comprehensive metabolic profile was reviewed and was within normal limits. Lipase was reviewed and was normal. Urinalysis was reviewed and does not show any evidence of urinary tract infection or hematuria. Labs: Laboratory Results - last 24 hr 01/07/23 01/07/23 01/07/23 12:05 12:05 12:05 WBC 8.4 RBC 4.39 Hgb 9.4 L Hct 32.0 L MCV 72.9 L MCH 21.4 L MCHC 29.4 L RDW Std Deviation 45.1 H RDW Coeff of Ciro 18.1 H Plt Count 212 MPV 10.7 Immature Gran % (Auto) 1.800 H Neut % (Auto) 74.7 H Lymph % (Auto) 14.9 L [place] % (Auto) 7.1 Eos % (Auto) 1.1 Baso % (Auto) 0.4 Absolute Neuts (auto) 6.3 Absolute Lymphs (auto) 1.25 Nucleated RBC % 0 Sodium 139 Potassium 3.6 Chloride 107 Carbon Dioxide 26.0 Anion Gap 6 BUN 4 L Creatinine 0.36 L Estim Creat Clear Calc 224.71 Est GFR (MDRD) Af Amer 274 Est GFR (MDRD) Non-Af 226 BUN/Creatinine Ratio 11.1 Glucose 80 Calcium 9.2 Total Bilirubin 0.40 AST 15 ALT 17 Alkaline Phosphatase 58 Total Protein 7.0 Albumin 2.9 L Globulin 4.1 Albumin/Globulin Ratio 0.7 L Lipase 135 Urine Color Yellow Urine Clarity Clear Urine pH 8.0 Ur Specific [place] 1.010 Urine Protein Negative Urine Glucose (UA) Normal Urine Ketones 5 H Urine Occult Blood Negative Urine Nitrite Negative Urine Bilirubin Negative Urine Urobilinogen Normal Ur Leukocyte Esterase Negative Urine RBC 0 SEEN Urine WBC 0 SEEN Ur Squamous Epith Cells 0 SEEN Urine Bacteria 0 SEEN Urine Mucus 0 SEEN Radiography Diagnostic Testing: Clinical Impression(s) from Imaging Studies Gallbladder Ultrasound 01/07/23 11:53 IMPRESSION: Normal right upper quadrant ultrasound examination. Right extrarenal pelvis. Electronically Signed: Donald Lozano MD at 14:09 EST , Right upper quadrant ultrasound was reviewed independently by myself. There is no gallbladder wall thickening. There is no ductal dilatation. There are no gallstones noted. There is no pericholecystic fluid. Radiologist also reviewed the ultrasound and showed a right extrarenal pelvis in addition to a normal right upper quadrant ultrasound. Treatment and Re-Evaluation Narrative: Patient was given IV fluids and morphine. Patient feels better on reevaluation. Patient was advised of her findings. Case was discussed with Dr. Rodríguez through her nurse. They were advised of the patient's work-up and results. Patient was instructed to follow-up with them in 5 to 7 days. Patient was instructed return if worse in any way. Patient understood and was agreeable with the plan. All questions were answered. Discharge Plan Triage Chief Complaint: Abd Pain ED Provider: Trevin Richard Dx/Rx/DC Orders Clinical Impression: Right upper quadrant abdominal pain, Instructions: ED Abdominal Pain Unkn Cause Fem Prescriptions: No Action PNV-DHA 27 mg iron-1 mg -300 mg capsule 1 cap PO DAILY famotidine [Pepcid] 20 mg tablet 20 mg PO Q12H Qty: 60 4RF hydroxyzine pamoate [Vistaril] 50 mg capsule 50 mg PO QHS Qty: 30 5RF ferrous sulfate [iron] 325 mg (65 mg iron) Tablet 325 mg PO BID venlafaxine 37.5 mg capsule,extended release 24hr 37.5 mg PO DAILY Qty: 30 4RF Primary Care Provider: Meng Hager Referrals: Linda Moore MD [Med Staff - Active Staff] - 3-5 Days Meng Hager MD [Primary Care Provider] - 5-7 Days Disposition Disposition: Home, Self Care
--- NOTE | 2023-01-07 11:53 | US_ITS ---
STUDY: ABDOMINAL ULTRASOUND - RIGHT UPPER QUADRANT REASON FOR VISIT: Female, 27 years old . Right upper quadrant pain. TECHNIQUE: Ultrasound evaluation of the right upper quadrant was performed with real-time and static quach-scale imaging. TECHNICAL QUALITY: Adequate. COMPARISON: None. FINDINGS: Liver: The liver measures 15.5 cm. There is normal echogenicity of the liver. The bile ducts are within normal limits. There is hepatic color flow. The direction of portal flow is hepatopetal. There is no demonstrated mass lesion. Gallbladder: Normal distended gallbladder. The gallbladder wall measures 2.0 mm. There is a negative sonographic Pantoja''s sign. There is no pericholecystic fluid. There are no gallstones. Common Bile Duct (C.B.D.): The common bile duct measures 2.0 mm. Pancreas: Normal size of the head, body and tail of the pancreas. There is normal echogenicity of the pancreas. There is no demonstrated pancreatic mass or cyst. Right Kidney: Normal size of the right kidney. The right kidney measures 11.5 cm x 4.9 cm x 4.6 cm. Normal renal cortex. The right cortex measures 1.8 cm. There is no demonstrated renal mass or cyst. There is an extra-renal pelvis of the right kidney. There is no distention of the renal calyces. US/Gallbladder IMPRESSION: Normal right upper quadrant ultrasound examination. Right extrarenal pelvis. Electronically Signed: Donald Lozano MD at 14:09 EST ,
[2023-01-07 12:19] LABS: Bacteria 0 SEEN /hpf (None Seen); Mucous, Urine 0 SEEN /hpf (<or=2+); Red Blood Cells-Urine 0 SEEN /hpf (0-5); Squamous Epithelial Cells - UA 0 SEEN /hpf (5-10); White Blood Cells 0 SEEN /hpf (0-5)
[2023-01-07 12:20] LABS: Absolute Lymphocyte Count 1.25 X10^3/uL (0.83-4.51); Absolute Neutrophil Count 6.3 X10^3/uL (2.0-7.7); Basophil# 0.03 X10^3/uL; Basophil% 0.4 % (0-1); Eosinophil# 0.09 X10^3/uL; Eosinophils% 1.1 % (0-5); Hemoglobin 9.4 g/dL (12.0-15.0); Lymphocyte # 1.25 X10^3/ul (0.83-4.51); Lymphocyte % 14.9 % (19-41); Mean Corp Hgb Conc 29.4 g/dL (32-36); Mean Corpuscular Hgb 21.4 pg (27.0-32.0); Mean Corpuscular Volume 72.9 fL (81-99); Mean Platelet Vol. 10.7 fl (6.2-12.0); Monocyte% 7.1 % (0-10); NRBC Flagged by Analyzer 0 % (0-5); Neutrophil # 6.29 X10^3/uL (2.7-7.7); Neutrophil % 74.7 % (47-70); Platelet Count 212 K/mm3 (150-450); RBC Distribution Width CV 18.1 % (11.6-14.6); RBC Distribution Width SD 45.1 fl (35.1-43.9); Red Blood Count 4.39 M/mm3 (4.2-5.4); White Blood Count 8.4 K/mm3 (4.4-11.0)
[2023-01-07] MEDS: 0.9% Normal Saline 1,000 ML 1000 ML IV (12:21)
[2023-01-07 12:22] LABS: Color, Urine Yellow (Yellow); Glucose, Dipstick Normal (Normal); Ketone-Dipstick 5 mg/dl (Negative); Leukocyte Esterase-Dipstick Negative /ul (Negative); Nitrite-Dipstick Negative (Negative); Occult Blood-Urine Negative /ul (Negative); Protein-Dipstick Negative (Negative); Urine Bilirubin Dipstick Negative (Negative); Urine Clarity Clear (Clear); Urine Urobilinogen Normal (Normal)
[2023-01-07 12:51] LABS: ALB/GLOB Ratio 0.7 RATIO (0.9-2.4); AST(SGOT) 15 U/L (15-37); Alanine Aminotransfer ALT/SGPT 17 U/L (13-56); Albumin, Serum 2.9 g/dL (3.2-5.0); Alkaline Phosphatase 58 U/L (45-117); Anion Gap 6 (5-15); BUN 4 mg/dL (7-18); BUN/Creat Ratio 11.1 RATIO (10-20); Calcium,Total 9.2 mg/dL (8.5-10.1); Chloride 107 mmol/L (98-107); Creatinine, Serum 0.36 mg/dL (0.55-1.02); EST Glomerular Filtration Rate 226 mL/min (>60); Est Glom Filt Rate - Afr Amer 274 mL/min (>60); Estimated Creatinine Clearance 224.71 ml/min; Globulin 4.1 g/dL (2.2-4.2); Glucose 80 mg/dL (74-106); Lipase 135 U/L (73-393); Potassium 3.6 mmol/L (3.5-5.1); Sodium Level 139 mmol/L (136-145)
[2023-01-07 15:41] VITALS: PULSE 69; RESP 15; O2SAT 99
== END 2023-01-07 15:42 | disposition home or self-care (01) ==
PROVIDERS: Emergency Provider Emergency Medicine; PCP Family Medicine; Visit Provider Emergency Medicine
DX: O99.891 Other specified diseases and conditions complicating pregnancy (principal); R10.11 Right upper quadrant pain; R11.2 Nausea with vomiting, unspecified; R06.02 Shortness of breath; J45.909 Unspecified asthma, uncomplicated; M54.9 Dorsalgia, unspecified; O99.519 Diseases of the respiratory system complicating pregnancy, unspecified trimester
CPT/HCPCS: 76705; 80053; 81001; 83690; 85025; 96361; 96374; 99283; J7030; A4216

== ENCOUNTER → 2023-01-16 | Outpatient (CLI) | payer OTHER, SELFPAY ==
--- NOTE | 2023-01-16 08:16 | US_ITS ---
STUDY: SECOND AND THIRD TRIMESTER OBSTETRICAL ULTRASOUND - LIMITED REASON FOR EXAM: Female, 27 years old placental location LMP: 07/04/2022. PRIOR ULTRASOUND: None. TECHNIQUE: Transabdominal. The patient refused transvaginal imaging. TECHNICAL QUALITY: Adequate. FINDINGS: There is a single intrauterine fetus. The fetus is in a cephalic presentation. There is demonstrated cardiac activity with a heart rate of 170 bpm. There is a normal amniotic fluid volume. The largest amniotic fluid pocket measures 6.6 cm x 2.9 cm. The amniotic fluid index (JESUS) is within normal limits. The placenta is right lateral with a complete previa. There are Grade 0 placental changes. The cervix measures 3.5 cm in length. BIOMETRY: Age by LMP: 28 weeks, 0 days. WANDA by LMP: 04/10/2023. US/OB Limited (No Biometrics) IMPRESSION: The placenta is right lateral with a complete previa. Electronically Signed: Donald Lozano MD at 12:29 EST ,
[2023-01-16 09:56] LABS: Glucose GTT-Gestation. Fasting 74 mg/dL (<105)
[2023-01-16 11:18] LABS: Glucose GTT-Gestational 1 Hr 162 mg/dL (<190)
[2023-01-16 11:58] LABS: Glucose GTT-Gestational 2 Hr 168 mg/dL (<165)
[2023-01-16 12:54] LABS: Glucose GTT-Gestational 3 Hr 124 L (<145)
== END | disposition home or self-care (01) ==
PROVIDERS: PCP Family Medicine; Referring Provider Obstetrics & Gynecology; Visit Provider Obstetrics & Gynecology
DX: Z34.92 Encounter for supervision of normal pregnancy, unspecified, second trimester (principal); Z3A.26 26 weeks gestation of pregnancy
CPT/HCPCS: 36415; 76815; 82951; 82952

== ENCOUNTER → 2023-03-02 | Outpatient (CLI) | payer OTHER, SELFPAY ==
--- NOTE | 2023-03-02 08:28 | US_ITS ---
STUDY: SECOND AND THIRD TRIMESTER OBSTETRICAL ULTRASOUND - LIMITED REASON FOR EXAM: Female, 27 years old growth/placenta previa LMP: July 04, 2022. PRIOR ULTRASOUND: Comparison is made with prior examination dated January 16, 2023. TECHNIQUE: Transabdominal. The patient refused transvaginal examination. TECHNICAL QUALITY: Adequate. FINDINGS: There is a single intrauterine fetus. The fetus is in an transverse lie with the head on the maternal left side. There is demonstrated cardiac activity with a heart rate of 145 bpm. There is a normal amniotic fluid volume. The largest amniotic fluid pocket measures 4.6 cm. The amniotic fluid index (JESUS) is 11.46 cm. The placenta is right lateral and anterior with a complete previa. There are Grade 1 placental changes. The cervix measures 4.1 cm in length. BIOMETRY: BPD: 8.37 cm: 33 weeks, 5 days HC: 30.29 cm: 33 weeks, 5 days AC: 31.43 cm: 35 weeks, 3 days FL: 6.46 cm: 33 weeks, 2 days Age by LMP: 34 weeks, 3 days. WANDA by LMP: April 10, 2023. age by current US: 33 weeks, 5 days. WANDA by current US: April 15, 2023. Estimated weight: 2476 grams, +/- 371 grams, 51 percentile. US/OB Limited With Biometrics IMPRESSION: Single live intrauterine gestation with a mean gestational age of 32 weeks and 5 days. The placenta is right lateral and anterior with a complete previa. Electronically Signed: Donald Lozano MD at 14:50 EDT ,
[2023-03-02 10:09] LABS: Hematocrit 33.9 % (37-47); Hemoglobin 10.4 g/dL (12.0-15.0); Mean Corp Hgb Conc 30.7 g/dL (32-36); Mean Corpuscular Hgb 23.8 pg (27.0-32.0); Mean Corpuscular Volume 77.6 fL (81-99); Mean Platelet Vol. 10.1 fl (6.2-12.0); Platelet Count 173 K/mm3 (150-450); RBC Distribution Width CV 19.9 % (11.6-14.6); RBC Distribution Width SD 55.8 fl (35.1-43.9); Red Blood Count 4.37 M/mm3 (4.2-5.4); White Blood Count 8.4 K/mm3 (4.4-11.0)
== END | disposition home or self-care (01) ==
PROVIDERS: PCP Family Medicine; Referring Provider Obstetrics & Gynecology; Visit Provider Obstetrics & Gynecology
DX: O44.03 Complete placenta previa NOS or without hemorrhage, third trimester (principal); O99.810 Abnormal glucose complicating pregnancy; O99.713 Diseases of the skin and subcutaneous tissue complicating pregnancy, third trimester; L29.9 Pruritus, unspecified; O99.013 Anemia complicating pregnancy, third trimester; D50.9 Iron deficiency anemia, unspecified; Z3A.32 32 weeks gestation of pregnancy; F41.9 Anxiety disorder, unspecified; O09.293 Supervision of pregnancy with other poor reproductive or obstetric history, third trimester; Z86.32 Personal history of gestational diabetes; Z87.59 Personal history of other complications of pregnancy, childbirth and the puerperium; Z87.19 Personal history of other diseases of the digestive system; J45.909 Unspecified asthma, uncomplicated; O99.513 Diseases of the respiratory system complicating pregnancy, third trimester
CPT/HCPCS: 36415; 76816; 85027

== ENCOUNTER → 2023-03-09 | Outpatient (CLI) | payer OTHER, SELFPAY ==
--- NOTE | 2023-03-09 13:36 | US_ITS ---
STUDY: SECOND AND THIRD TRIMESTER OBSTETRICAL ULTRASOUND-limited REASON FOR EXAM: Female, 27 years old abnormal placenta noted on previous study LMP: 07/04/2022 TECHNIQUE: Transabdominal and Transvaginal TECHNICAL QUALITY: Adequate. PRIOR ULTRASOUND: 03/02/2023 FINDINGS: There is a single intrauterine fetus. The fetus is in a cephalic presentation. There is demonstrated cardiac activity with a heart rate of 155 bpm. The placenta is anterior and right lateral. Placenta appears to be at least a marginal previa. There is some sonographic coverage of the internal os but it is not a complete previa. Nonetheless it is low-lying and again at least partially covering the internal os. There is no placental abruption, there is hypervascularity of the right lateral aspect of the placenta near the myometrial attachment. This is not placenta accreta as the placenta is clearly separate from the uterine wall, this hypervascularity is seen on images 33 through 37. Placental grade is 1 Cervical length measures 3.6 cm US/Transvaginal w/Preg US IMPRESSION: Right lateral grade 1 placenta with sonographic evidence of marginal previa. No complete previa is noted as the founder / ceo was able to document os that was uncovered by placenta. . There is also some hypervascularity along the right lateral margin of sent to near the myometrial attachment. No demonstrated placental abruption. Cervix measures 3.6 cm Heart rate of 155 bpm, fetus is in cephalic presentation Electronically Signed: Jacek Lopez MD at 15:38 EDT ,
== END | disposition home or self-care (01) ==
LOC: US 13:34
PROVIDERS: PCP Family Medicine; Referring Provider Obstetrics & Gynecology; Visit Provider Obstetrics & Gynecology
DX: O44.03 Complete placenta previa NOS or without hemorrhage, third trimester (principal)
CPT/HCPCS: 76817

== ENCOUNTER 2023-03-16 10:15 | Inpatient (IN) | payer OTHER, SELFPAY ==
[2023-03-16] VITALS (16 sets, daily range): BP systolic 95–118; BP diastolic 56–78; PULSE 71–93; RESP 14–18; TEMP 36.2–36.8; O2SAT 97–100; BMI 20.9
[2023-03-16] MEDS: Lactated Ringers 1,000 ML 999 ML IV (10:45)
[2023-03-16] MEDS: Acetaminophen 500 MG Tablet 1000 MG PO ×3 (10:51→23:50)
[2023-03-16 11:10] LABS: Absolute Lymphocyte Count 1.78 X10^3/uL (0.83-4.51); Absolute Neutrophil Count 6.2 X10^3/uL (2.0-7.7); Basophil# 0.03 X10^3/uL; Basophil% 0.3 % (0-1); Eosinophil# 0.06 X10^3/uL; Eosinophils% 0.7 % (0-5); Hematocrit 32.1 % (37-47); Hemoglobin 9.8 g/dL (12.0-15.0); Lymphocyte # 1.78 X10^3/ul (0.83-4.51); Lymphocyte % 20.7 % (19-41); Mean Corp Hgb Conc 30.5 g/dL (32-36); Mean Corpuscular Hgb 23.2 pg (27.0-32.0); Mean Corpuscular Volume 76.1 fL (81-99); Mean Platelet Vol. 10.6 fl (6.2-12.0); Monocyte# 0.43 X10^3/uL; NRBC Flagged by Analyzer 0 % (0-5); Neutrophil # 6.17 X10^3/uL (2.7-7.7); Neutrophil % 71.8 % (47-70); Platelet Count 192 K/mm3 (150-450); RBC Distribution Width CV 18.5 % (11.6-14.6); RBC Distribution Width SD 50.9 fl (35.1-43.9); Red Blood Count 4.22 M/mm3 (4.2-5.4); White Blood Count 8.6 K/mm3 (4.4-11.0)
[2023-03-16] MEDS: Lactated Ringers 1,000 ML 150 ML IV (11:46)
[2023-03-16 11:52] LABS: Syphilis Antibodies Non-reactive
--- NOTE | 2023-03-16 11:53 | HP.PCM.OB_ITS ---
HPI - General General Date of Admission: 03/16/23 HPI Narrative ILENE WATKINS, is a 27 F who presents for LTCS for marginal previa. Maternal Data Information WANDA Calculator Estimated Delivery Date Method Current WG Current Estimate 04/10/23 LMP (Certain) 36w 3d Other Estimates 04/08/23 Ultrasound #1 36w 5d PFSH PFSH Medical History (Updated 03/16/23 @ 11:[address] Linda Moore MD) Anxiety Asthma Depression H/O gestational diabetes in prior , currently History of cholestasis during Marginal placenta previa depression Supervision of high risk , antepartum Home Medications multivitamin no.47-iron fum 27 mg-folate no.1 1 mg-dha 300 mg capsule (PNV-DHA) 1 cap PO DAILY 08/30/22 [History Last Taken 03/16/23 08:00] famotidine 20 mg tablet (Pepcid) 20 mg PO Q12H heartburn 03/16/23 [History Last Taken 03/16/23 08:00] venlafaxine 37.5 mg capsule,extended release 24 hr 37.5 mg PO DAILY anxiety, depression 03/16/23 [History Last Taken 03/16/23 08:00] Allergy/AdvReac Type Severity Reaction Status Date / Time No Known Allergies Allergy Verified 03/10/23 15:39 Family History Grandfather Diabetes Sister Myocardial infarction Factor 5 Leiden mutation, heterozygous Surgical History (Updated 03/16/23 @ 11:22 by Fransisca Henriquez) [place] teeth removed Social History household members: family housing: house number of children: 2 current occupational status: employed current occupation: [employer]. School- athletics teacher pets and animals: Yes (patient is not cleaning the litter box) pets and animals: cat(s) and dog(s) Smoking Status: Never smoker second hand exposure: No alcohol intake: current details: Not while substance use type: does not use caffeine: Yes what type of physical activity do you participate in: none seatbelt use: always do you feel safe at home: Yes additional social history: - [employer] History 3 Elective abortions Hx Para 2 Spontaneous abortions Hx # Term Pregnancies Ectopic pregnancies Hx # Pregnancies Multiple births # of living children 2 Past Pregnancies Del. Date Name GA/Weeks Outcome Route Bth Weight Infant Gen Labor Lgth Anesthesia Del Benoitatn Provider FOB 06/17/17 Raychad 39 live - full term 7lbs ?oz Male 15 h ours epidural [facility] Quintin Nichols 03/04/19 Twain 37 live - full term 6.7 Male epidur al [facility] Delivery Date: 06/17/17 Last Updated by: Emiliana Mccabe Gestational diabetes. No issues during delivery Delivery Date: 03/04/19 Last Updated by: Rosa Isela Martinez Cholestasis Visit Details Expected Delivery Route/Plan Labor Preferences- CB/BF classes: [] labor support person: [] labor intervention preferences: [] pain management options preferred: [] cut cord/dad catch: [] : [] PP control planned: [] discussed possible routes of delivery and associated risks: [] special requests: [] Plans Covid status: discussed Flu vaccine: discussed Tdap vaccine: [] Rhogam: [] LARC form signed: [] Problem list reviewed and updated with the most current plan of care details and appropriate orders placed. Relevant counseling for the gestational age provided. Continue routine care and follow up unless otherwise noted in visit notes/problem list details OB Flowsheet Initial Weight: Not Recorded Date -?-?-?-?-?-?-?-?-?-?-?-?- EGA Weight BP Urine Prot -?-?-?-?-?-?-?-?-?-?-?-?- Glucose FHR FuHt Pres Dilation -?-?-?-?-?-?-?-?-?-?-?-?- Effaced St Visit Note 09/08/22 -?-?-?-?-?-?-?-?-?-?-?-?- 9w 3d 115 lb 100/60 -?-?-?-?-?-?-?-?-?-?-?-?- 170 -?-?-?-?-?-?-?-?-?-?-?-?- SM- CRL 2 cm con s with lmp 10/10/22 -?-?-?-?-?-?-?-?-?-?-?-?- 14w 0d 117 lb 6 oz 113/74 Nega tive -?-?-?-?-?-?-?-?-?-?-?-?- Negative 166 -?-?-?-?-?-?-?-?-?-?-?-?- JV- CRL measurin g apprpriate today for 14 weeks. normal jordan (girl Ricarda with elise name Alejandro) pt will try to take her iron supplement this month so we can retest next month 11/07/22 -?-?-?-?-?-?-?-?-?-?-?-?- 18w 0d 121 lb 2 oz 115/73 Nega tive -?-?-?-?-?-?-?-?-?-?-?-?- Negative 165 -?-?-?-?-?-?-?-?-?-?--?-?- JV- baby very ac tive, no complaints today. anatomy scan 11/18/22 12/05/22 -?-?-?-?-?-?-?-?-?-?-?-?- 22w 0d 131 lb 2 oz 114/76 -?-?-?-?-?-?-?-?-?-?--?-?- 160 -?-?-?-?-?-?-?-?-?-?-?-?- JV- no cramping or spotting. gct ordered. JV- no cramping or spotting. gct ordered. c/o heart burn, itching, sleep disturbances. will rx pepcid, vistaril, and order cholestasis labs due to her history of cholestasis of 01/02/23 -?-?-?-?-?-?-?-?-?-?-?-?- 26w 0d 134 lb 6 oz 109/73 Nega tive -?-?-?-?-?-?-?-?-?-?-?-?- Negative 160 26 -?-?-?-?-?-?-?-?-?-?-?-?- SM- no vb lof go od fm n oregular ctx needs IV iron. 3 horu gct ordered 01/16/23 -?-?-?-?-?-?-?-?-?-?-?-?- 28w 0d 138 lb 105/65 Negative -?-?-?-?-?-?-?-?-?-?-?-?- Negative 166 28 -?-?-?-?-?-?-?-?-?-?-?-?- JV- no lof, vagi nal bleeding, or dec fm. got first iron infusion 01/30/23 -?-?-?-?-?-?-?-?-?-?-?-?- 30w 0d 142 lb 6 oz 101/65 Nega tive -?-?-?-?-?-?-?-?-?-?-?-?- Negative 140 29 -?-?-?-?-?-?-?-?-?-?-?-?- JV- still a comp lete previa. cs requested for 36-37 weeks and will rpt scan one more time at 34 weeks to rule out accreta and confirm previa. 02/13/23 -?-?-?-?-?-?-?-?-?-?-?-?- 32w 0d 144 lb 2 oz 114/74 Nega tive -?-?-?-?-?-?-?-?-?-?-?-?- Negative 145 32 -?-?-?-?-?-?-?-?-?-?-?-?- JV- pt needs rpt cbc next visit. her hg was only 9.2 prior to infusion and she is now stating that she will refuse a blood transfusion. rpt ultrasound ordered at 34 weeks per patient request. 03/02/23 -?-?-?-?-?-?-?-?-?-?-?-?- 34w 3d 144 lb 8 oz 108/72 Nega tive -?-?-?-?-?-?-?-?-?-?-?-?- Negative 145 35 -?-?-?-?-?-?-?-?-?-?-?-?- SM- patient lorena ing to [facility] to double check previa. 03/09/23 -?-?-?-?-?-?-?-?-?-?-?-?- 35w 3d 149 lb 4 oz 103/67 Nega tive -?-?-?-?-?-?-?-?-?-?-?-?- Negative 140 -?-?-?-?-?-?-?-?-?-?-?-?- SM- repeat US sh ows marginal previa plan LTCS. 03/16/23 -?-?-?-?-?-?-?-?-?-?-?-?- 36w 3d 146 lb 6.191 oz 112/78 -?-?-?-?-?-?-?-?-?-?-?-?- -?-?-?-?-?-?-?-?-?-?-?-?- NST FHR Rate Baby A Baseline: 130 ROS Constitutional Constitutional: Reports systems reviewed and no addt'l complaints, except as documented Eyes Eyes: Denies change in vision ENT HEENT: Reports systems reviewed and no addt'l complaints, except as documented; Denies headache(s) Cardiovascular Cardiovascular: Reports systems reviewed and no addt'l complaints, except as documented; Denies chest pain or dyspnea Respiratory/Chest Respiratory/Chest: Reports systems reviewed and no addt'l complaints, except as documented Gastrointestinal Gastrointestinal: Reports systems reviewed and no addt'l complaints, except as documented; Denies abdominal pain Genitourinary Genitourinary: Reports systems reviewed and no addt'l complaints, except as documented, contractions Details: present (irregular) and movement Details: present; Denies dysuria or genital lesions Musculoskeletal Musculoskeletal: Reports systems reviewed and no addt'l complaints, except as documented Neurologic Neurologic: Reports systems reviewed and no addt'l complaints, except as documented Endocrine Endocrinology: Reports systems reviewed and no addt'l complaints, except as documented Vital Signs Vital Signs Vital Signs: 03/16/23 10:46 03/16/23 10:46 03/16/23 10:46 Temperature Temperature Source Oral Pulse Rate 93 Blood Pressure 112/78 BP Systolic 112 BP Diastolic 78 Pulse Ox 03/16/23 10:46 03/16/23 10:46 Temperature 98.3 F Temperature Source Pulse Rate Blood Pressure BP Systolic BP Diastolic Pulse Ox 99 Weight Weight: 146 lb 6.191 oz Body Mass Index (BMI) 20.9 Physical Exam Const alert, oriented x3, no apparent distress and healthy appearing HEENT normocephalic and moist oral mucous membranes Head and Scalp: atraumatic Neck full ROM, no lymphadenopathy, supple and thyroid normal General: trachea midline Lymph Lymphatic: no lymphadenopathy noted Chest inspection of chest normal Resp normal respiratory effort Cardio regular rate GI normal to inspection, nondistended, normoactive bowel sounds, soft to palpation and non-tender Inspection: gravid external exam normal Manual OB Exam: estimated gestational size appropriate, presentation cephalic, dilated, effaced and station Extremity normal to inspection General Extremity: Negative for edema Skin no rashes or lesions noted Neuro no focal motor deficits and deep tendon reflexes 2+ bilaterally Motor Exam: strength 5/5 throughout and clonus absent Psych mental status grossly normal Labs Labs Labs: Blood Type B POSITIVE Antibody Screen NEGATIVE Hct 32.1 % (37-47) L Hgb 9.8 g/dL (12.0-15.0) L Obstetrics US Syphilis Total Ab Non-reactive Rubella IgG Antibody Reactive (Nonreactive) Hep Bs Antigen Non-Reactive (Nonreactive) HIV 1&2 Antibody Non-Reactive (Nonreactive) Glucose 1 Hr 50 gm 147 mg/dL (70-140) H Rhogam given: No Miscellaneous Test Assessment & Plan (1) Iron deficiency anemia of : COMMENT: OTC Fe daily, rpt CBC in 1 month- still low, reocmmend IV iron infusions (2) Pruritus of in second trimester: COMMENT: 12/18 nl bile acid (3) Abnormal glucose affecting : COMMENT: Normal 3hr GCT (4) Marginal placenta previa: (5) : QUALIFIERS: Weeks of gestation: 35 weeks Qualified Code(s): Z3A.35 - 35 weeks gestation of COMMENT: NIPT low risk; declines carrier, nl anatomy, marginal vs low lying placenta. Rpt US at 28 weeks. pelvic rest. (6) Supervision of high risk , antepartum: COMMENT: PRR WANDA: 04/10/23, girl, Alejandro PC: Edson Neri Spouse: Simone (7) Anxiety: COMMENT: currently on Effexor (8) H/O gestational diabetes in prior , currently : COMMENT: w/ first . No GDM with 2nd, HgA1C ordered (9) History of cholestasis during : COMMENT: IoL at 37 weeks, baseline CMP ordered (10) Asthma: COMMENT: controlled PLAN: Plan After discussing the patient's diagnosis and treatment plan options, patient wishes to proceed with surgical management. I have discussed with the patient the risks, benefits, and alternatives of the procedure which include but are not limited to risks of anesthesia, bleeding, infection, possible damage to bowel, bladder, or surrounding vasculature which could lead to additional surgery to evaluate any complications. Patient agrees to procedure and wishes to proceed. ACOG/uptodate references given for additional information regarding procedure.
[2023-03-16] MEDS: Sodium Citrate/Citric Acid 30 ML UDC PO (12:44)
[2023-03-16] MEDS: Cefazolin 2 GM in 0.9% Normal Saline 100 ML IV (12:53)
--- NOTE | 2023-03-16 13:17 | PLAC_PTH ---
PATIENT: ILENE WATKINS LOC: [facility] U#:[id number] AGE/SX: 27/F ROOM: WP004 RE03/16/[address]: Dr. Linda Moore MD : 1995 BED: 1 DIS: 03/17/2023 SPEC #: [id number] RECD: 03/16/23 14:47 STATUS: SAIRA REPiper #: [id number] ALLEGRA: 03/16/23 13:[address]: Linda Moore DEPT: SURGICAL PATHOLOGY RECD BY: Rohini Lee ENTERED: 03/17/23 09:46 SP TYPE: PLACENTA OTHR DR: Dr. Meng Hager MD Tissues: Placenta, NOS Procedures: Surgery Specimen Level V HEADER OPERATION: Primary section PRE-OP DIAGNOSIS: Labor TISSUE SUBMITTED: Placenta MICROSCOPIC DIAGNOSIS Placenta: Placental disc - third trimester placenta (528 gm). - A focal area of increased perivillous and intervillous fibrin deposition and infarction (1 cm in greatest dimension). Membranes - no pathologic diagnosis. Umbilical cord - three blood vessels and no pathologic diagnosis. SJ:ladonna 03/19/2023 MICROSCOPIC DESCRIPTION Slides are reviewed. GROSS DESCRIPTION SPECIMEN: PLACENTA / CLINICAL INFORMATION: A. Weight: 2.47 kg B. Gestational Age: 36 weeks C. Sex: Female PLACENTAL WEIGHT (POST FIXATION): 528 gm PLACENTAL DIMENSIONS: 17.0 x 15.0 x 3.0 cm PLACENTAL SHAPE: Usual ovoid PLACENTAL WEIGHT FOR GESTATIONAL AGE: Within 10-99th percentile MEMBRANES - Present A. Insertion: Marginal B. Site of rupture from edge: At edge of placental disc C. Color of membrane: [place] D. Abnormalities: None UMBILICAL CORD - Present A. Color: [place] B. Insertion: Eccentric C. Length: 58.0 cm D. Diameter: 1.5 cm E. Number of vessels: Three F. Abnormalities: None PLACENTAL DISC - Present A. Color of surface: [place] B. surface abnormalities: None C. Maternal cotyledons: Intact with minimal tears D. Attached retro placental clot: No clot E. Cut surface: Dark red and spongy F. Lesions: None G. Separate clot: Absent SECTIONS SUBMITTED: 1. Umbilical cord ( end notched) 2. Umbilical cord, placental end 3. Membrane roll 4. Placental disc, and maternal surfaces 5. Placental disc, and maternal surfaces 6. Placental disc, and maternal surfaces AM:ladonna 03/18/2023 TC:3 CPT: 34025
[2023-03-16] MEDS: Methylergonovine 0.2 MG/ML Ampul IM (13:21)
[2023-03-16] MEDS: Oxytocin 15 Units/NS 250ml 15 UNITS/250 ML IV.SOLN 83 UNITS IV (14:02)
[2023-03-16] MEDS: Ketorolac 30 MG/ML Syringe IV ×2 (14:38→20:35)
[2023-03-16] MEDS: 0.9% Saline Lock 10 ML Syringe IV ×2 (14:38→20:36)
[2023-03-16 14:48] LABS: Pathology Specimen OB SEE PATHOLOGY REPORT
[2023-03-16] MEDS: Lactated Ringers 1,000 ML 100 ML IV (17:05)
--- NOTE | 2023-03-16 17:26 | CPS ---
MEDICAL ASSISTANT PER DIEM left I.S. at bedside, Patient busy at this time
[2023-03-17] VITALS: BP 105/63; PULSE 69; RESP 15; TEMP 36.6; O2SAT 96
[2023-03-17] MEDS: Ketorolac 30 MG/ML Syringe IV ×2 (02:17→08:42)
[2023-03-17] MEDS: 0.9% Saline Lock 10 ML Syringe IV ×2 (02:18→08:42)
[2023-03-17 04:00] VITALS: BP 106/64; PULSE 76; RESP 15; TEMP 36.4; O2SAT 97
[2023-03-17] MEDS: Acetaminophen 500 MG Tablet 1000 MG PO ×2 (05:28→12:35)
[2023-03-17 05:42] LABS: Hematocrit 28.3 % (37-47); Hemoglobin 8.9 g/dL (12.0-15.0); Mean Corp Hgb Conc 31.4 g/dL (32-36); Mean Corpuscular Hgb 23.7 pg (27.0-32.0); Mean Corpuscular Volume 75.3 fL (81-99); Mean Platelet Vol. 9.7 fl (6.2-12.0); Platelet Count 154 K/mm3 (150-450); RBC Distribution Width CV 18.5 % (11.6-14.6); Red Blood Count 3.76 M/mm3 (4.2-5.4); White Blood Count 9.6 K/mm3 (4.4-11.0)
--- NOTE | 2023-03-17 06:47 | PN.OBGYN_ITS ---
Subjective Subjective Patient doing well without complaints. Tolerating PO. Ambulating and voiding without difficulty. Feeding well. Denies chest pain, shortness of breath, calf pain/swelling, fevers, chills, lightheadedness. Objective Data Objective Data Vital Signs: Vital Signs Temp Pulse Resp BP Pulse Ox O2 Del Method 97.6 F L 76 15 106/64 97 Room Air 03/17/23 04:00 03/17/23 04:00 03/17/23 04:00 03/17/23 04:00 03/17/23 04:00 03/17/23 04:00 Oxygen Delivery Method Room Air Weight: 146 lb 6.191 oz Body Mass Index (BMI) 20.9 Intake & Output: Intake and Output for Last 24 Hours 03/15/23 03/16/23 03/17/23 23:59 23:59 23:59 Intake Total 1846.67 / 1846.67 Output Total 1650 / 1650 300 / 300 Balance 196.67 / 196.67 -300 / -300 Lab / Micro Data Attestation: I reviewed the patient's lab results. Result Diagrams: 03/17/23 05:35 Labs: Laboratory Results - last 24 hr 03/16/23 10:45: WBC 8.6, RBC 4.22, Hgb 9.8 L, Hct 32.1 L, MCV 76.1 L, MCH 23.2 L , MCHC 30.5 L, RDW Std Deviation 50.9 H, RDW Coeff of Ciro 18.5 H, Plt Count 192, MPV 10.6, Immature Gran % (Auto) 1.500 H, Neut % (Auto) 71.8 H, Lymph % (Auto) 20.7, [place] % (Auto) 5.0, Eos % (Auto) 0.7, Baso % (Auto) 0.3, Absolute Neuts (auto) 6.2, Absolute Lymphs (auto) 1.78, Nucleated RBC % 0 03/16/23 10:45: Blood Type B POSITIVE, Antibody Screen NEGATIVE 03/16/23 10:45: Syphilis Total Ab Non-reactive 03/17/23 05:35: WBC 9.6, RBC 3.76 L, Hgb 8.9 L, Hct 28.3 L, MCV 75.3 L, MCH 23.7 L, MCHC 31.4 L, RDW Std Deviation 51.0 H, RDW Coeff of Ciro 18.5 H, Plt Count 154, MPV 9.7 ROS Constitutional Constitutional: Reports systems reviewed and no addt'l complaints, except as documented; Denies anorexia or headache(s) Cardiovascular Cardiovascular: Reports systems reviewed and no addt'l complaints, except as documented; Denies dizziness, dyspnea, nausea or tachypnea Respiratory/Chest Respiratory/Chest: Reports systems reviewed and no addt'l complaints, except as documented; Denies cough, dyspnea, shortness of breath at rest or tachypnea Gastrointestinal Gastrointestinal: Reports systems reviewed and no addt'l complaints, except as documented; Denies abdominal pain, constipation or nausea Genitourinary Genitourinary: Reports systems reviewed and no addt'l complaints, except as documented; Denies burning urination, difficulty urinating, dysuria, urinary frequency or urinary incontinence Musculoskeletal Musculoskeletal: Reports systems reviewed and no addt'l complaints, except as documented Integumentary Integumentary: Reports systems reviewed and no addt'l complaints, except as documented Neurologic Neurologic: Reports systems reviewed and no addt'l complaints, except as documented; Denies abnormal speech, dizziness or headache(s) Psychiatric Psychiatric: Reports systems reviewed and no addt'l complaints, except as documented Endocrine Endocrinology: Reports systems reviewed and no addt'l complaints, except as documented Hematologic/Lymphatic Hematologic/Lymphatic: Reports systems reviewed and no addt'l complaints, except as documented Physical Exam Const alert, oriented x3 and no apparent distress Neck full ROM Resp normal respiratory effort, normal air movement and no retractions Effort and Inspection: able to speak in complete sentences and symmetric chest movement GI soft to palpation Inspection: incision intact Bladder / Kidney Exam: bladder normal to palpation Uterus Palpation: uterus fundus firm (U1) Extremity normal to inspection and full ROM Psych mental status grossly normal, thought process normal and cooperative Assessment & Plan (1) Supervision of high risk , antepartum: COMMENT: PRR WANDA: 04/10/23, girl, Alejandro PC: Edson Neri Spouse: Simone PLAN: s/p LTCS PPD # 1 1. routine post care 2. formula feeding- support given 3. rh positive 4. rubella immune (2) Anxiety: COMMENT: currently on Effexor PLAN: follow up in 2 weeks at pp incision check (3) : QUALIFIERS: Weeks of gestation: 35 weeks Qualified Code(s): Z3A.35 - 35 weeks gestation of COMMENT: NIPT low risk; declines carrier, nl anatomy, marginal vs low lying placenta. Rpt US at 28 weeks. pelvic rest. Charges/Coding Multi Select Codes Urinary/Genital Urinary/Genital CPT Codes: No Charge
--- NOTE | 2023-03-17 06:51 | DCINST_ITS ---
Discharge Instructions Diet Discharge Diet: No restrictions Activity Discharge Activity: Return to Normal Activity May resume sexual activity in: 6-8 weeks Dressing / Incision Call your doctor if your incision/area has: Continuous Slow Oozing, Sudden Increased Bleeding, Increased Pain/ Swelling, Increased Redness, Foul Smelling Discharge and Swelling at the incision site Call your doctor if you observe: Fever of 101 or Higher, Coldness, Increased Pain, Numbness or Tingling, Change in Color, Inability to urinate, Inability to have a bowel movement, Using more than 1 pad per hour, Shortness of breath, Dizziness, Fainting spells, Swelling in the ankles, Chest pain, Increased palpitations (irregular heartbeat), Calf discomfort and Uncontrolled pain Remove Dressing in: 1 week Cleanse incision/area with: Keep Dressing Clean & Dry Follow Up Care Please Follow Up With: Milena Rios CNM When: Please call the office to schedule your follow up appointment in 2 week and again 6 weeks. Test Results: Test results from this visit will be discussed in further detail at your follow- up appointment, if applicable. Discharge Plan Admission Admit Date/Time: 03/16/23 10:15 Attending Provider: Linda Moore Primary Care Provider: Meng Hager Discharge Orders/Prescriptions Prescriptions: No Action PNV-DHA 27 mg iron-1 mg -300 mg capsule 1 cap PO DAILY venlafaxine 37.5 mg capsule,extended release 24hr 37.5 mg PO DAILY famotidine [Pepcid] 20 mg tablet 20 mg PO Q12H Referrals / Follow Up: Meng Hager MD [Primary Care Provider] -
--- NOTE | 2023-03-17 06:52 | DCINST_ITS ---
Discharge Instructions Diet Discharge Diet: No restrictions Activity May resume sexual activity in: 6-8 weeks Dressing / Incision Call your doctor if your incision/area has: Continuous Slow Oozing, Sudden Increased Bleeding, Increased Pain/ Swelling, Increased Redness, Foul Smelling Discharge and Swelling at the incision site Call your doctor if you observe: Fever of 101 or Higher, Coldness, Increased Pain, Numbness or Tingling, Change in Color, Inability to urinate, Inability to have a bowel movement, Using more than 1 pad per hour, Shortness of breath, Dizziness, Fainting spells, Swelling in the ankles, Chest pain, Increased palpitations (irregular heartbeat), Calf discomfort and Uncontrolled pain Cleanse incision/area with: Keep Dressing Clean & Dry Follow Up Care Please Follow Up With: Milena Rios CNM Test Results: Test results from this visit will be discussed in further detail at your follow- up appointment, if applicable. Discharge Plan Admission Admit Date/Time: 03/16/23 10:15 Attending Provider: Linda Moore Primary Care Provider: Meng Hager Discharge Orders/Prescriptions Prescriptions: No Action PNV-DHA 27 mg iron-1 mg -300 mg capsule 1 cap PO DAILY venlafaxine 37.5 mg capsule,extended release 24hr 37.5 mg PO DAILY famotidine [Pepcid] 20 mg tablet 20 mg PO Q12H Referrals / Follow Up: Meng Hager MD [Primary Care Provider] - Disposition Disposition (needs filled in before D/C Order can be placed): Home, Self Care
[2023-03-17 08:00] VITALS: BP 96/58; PULSE 90; RESP 16; TEMP 36.6; O2SAT 97
[2023-03-17] MEDS: Venlafaxine XR 37.5 MG Capsule PO (10:05)
[2023-03-17] MEDS: Senna/Docusate Sodium 1 Tablet PO (10:05)
[2023-03-17 11:50] VITALS: BP 103/61; PULSE 86; RESP 16; TEMP 36.9; O2SAT 96
--- NOTE | 2023-03-17 14:00 | OP.PCM_ITS ---
Assessment & Plan (1) Post-op pain: (2) Iron deficiency anemia of : COMMENT: OTC Fe daily, rpt CBC in 1 month- still low, reocmmend IV iron infusions (3) Pruritus of in second trimester: COMMENT: 12/18 nl bile acid (4) Abnormal glucose affecting : COMMENT: Normal 3hr GCT (5) Marginal placenta previa: (6) : QUALIFIERS: Weeks of gestation: 35 weeks Qualified Code(s): Z3A.35 - 35 weeks gestation of COMMENT: NIPT low risk; declines carrier, nl anatomy, marginal vs low lying placenta. Rpt US at 28 weeks. pelvic rest. (7) Supervision of high risk , antepartum: COMMENT: PRR WANDA: 04/10/23, girl, Alejandro PC: Edson Neri Spouse: Simone (8) Anxiety: COMMENT: currently on Effexor (9) H/O gestational diabetes in prior , currently : COMMENT: w/ first . No GDM with 2nd, HgA1C ordered (10) History of cholestasis during : COMMENT: IoL at 37 weeks, baseline CMP ordered (11) Asthma: COMMENT: controlled Maternal Data Information WANAD Calculator Estimated Delivery Date Method Current WG Current Estimate 04/10/23 LMP (Certain) 36w 6d Other Estimates 04/08/23 Ultrasound #1 37w 1d Final WANDA Source: LMP Details Operative Information Date of Procedure: 03/16/23 Pre-Operative Diagnosis: Previous Post-Operative Diagnosis: same Indications for : Repeat Elective Indications Narrative: Surgeon: Linda Moore MD Classification: Scheduled Procedure Type: low transverse Type of Anesthesia: Spinal Special Medications: none Antibiotic Given: Ancef 2 grams IV x1 Drain: Rosario to straight drain Fluids Replaced: crystalloid Findings Description of Procedure: Spinal anesthesia was placed without difficulty. Rosario catheter was placed. The patient was placed in the dorsal supine position with leftward tilt. Patient was prepped and draped in the normal sterile fashion. Pfannenstiel skin incision was made with the scalpel and carried through to the underlying layer of fascia with the scalpel. Fascia was nicked in the midline and the incision extended laterally. The rectus bellies were dissected off superiorly and inferiorly with out complication both sharply and bluntly. The peritoneum was entered digitally. The incision was stretched and a low transverse uterine incision was made with the scalpel. The 's head was delivered atraumatically followed by the anterior and posterior shoulders without complication the rest of the infant delivered. The cord was clamped and cut and the was handed off to awaiting nurse. The placenta was delivered spontaneously immediately following and was noted to be intact and have a three- vessel cord. The uterus was exteriorized cleared of all clots and debris, and the incision was closed in a single layer closure using #1 Monocryl. The ovaries and fallopian tubes were noted to be within normal limits. The uterus was returned to the maternal abdomen and gutters were cleared of all clots and debris. The peritoneum was closed with 3-0 Monocryl in a running fashion. Gloves were changed prior to fascial closure. Fascia was closed with 0 PDS in a running fashion. Subcutaneous tissue was copiously irrigated and the skin was closed with 3-0 Monocryl in a subcuticular fashion. Mepilex dressing was applied without complication. Patient was taken to recovery in stable condition. Amniotic Membrane Rupture Type: Artificial Amniotic Fluid Description: Clear Placenta Disposition: [facility] Cord Vessel Description: 3 Vessels Delayed Cord Clamping: Yes Complications Risks of Surgery Discussed w/Patient: Bleeding, Infection, Need for Future C-Sections and Injury to surrounding structure(s) including bowel and bladder Vaginal Delivery Complication Complications: None Admit VTE Documentation VTE Present on Admission: No VTE Mechan Device Prophylaxis: SCD's Procedures Urinary/Genital [id number]: 40813 Delivery [facility]
[2023-03-17] MEDS: Naproxen 500 MG Tablet PO (14:30)
== END 2023-03-17 15:10 | disposition home or self-care (01) | DRG 788 ==
PROVIDERS: Admitting Provider Obstetrics & Gynecology; PCP Family Medicine; Visit Provider Obstetrics & Gynecology
PROC: 10D00Z1 Extraction of Products of Conception, Low, Open Approach (ICD-10-PCS; CPT 59514; principal; 2023-03-16 11:45)
DX: O44.23 Partial placenta previa NOS or without hemorrhage, third trimester (principal); D50.9 Iron deficiency anemia, unspecified; F41.9 Anxiety disorder, unspecified; J45.909 Unspecified asthma, uncomplicated; O99.52 Diseases of the respiratory system complicating childbirth; O99.344 Other mental disorders complicating childbirth; O99.02 Anemia complicating childbirth; Z3A.35 35 weeks gestation of pregnancy; Z37.0 Single live birth; Z86.32 Personal history of gestational diabetes
CPT/HCPCS: 59025; 59050; 85025; 85027; 86780; 86850; 86900; 86901; 88307; 99221; J7120; A4216; G0378; J2405